=== PATIENT | female | born 1940 | race Two or more races ===

== ENCOUNTER 2024-12-25 20:05 | Inpatient (IN) | payer MEDICAID ==
[~2024-12-25] VITALS: Ht 147.3 cm; Wt 71.0 kg
--- NOTE | 2024-12-25 20:35 | ED.PDOC ---
GI ASSESSMENT HPI Comments 84-year-old female who came to ER into abdominal pain. Patient was having dinner about 3 years ago, and she started experiencing midsternal chest discomfort/epigastric pain, felt like the food was was stuck on her midsternal chest area. She felt nauseated, and unable to swallow. She denies any shortness of breath or drooling. Chief Complaint: Abdominal Pain Time Seen by MD: 20:35 Reviewed Notes: Nurses Notes Allergies: Coded Allergies: NO KNOWN ALLERGIES (Unverified , 12/25/24) Information Source: Patient Mode of Arrival: Ambulatory Timing: Hours Duration: Since onset Quality: Aching Past Medical History PAST MEDICAL HISTORY: HTN Surgical History: Denies all surgeries QC ANALYST History: Denies all QC ANALYST Hx Family History Family History: Reviewed,noncontributory to illness Social History Smoker: Non-Smoker Alcohol: Denies ETOH Use Drugs: Denies Drug Use Lives In: Home Constitutional: denies: chills, diaphoresis, fatigue, fever, malaise, sweats, weakness, others EENTM: denies: blurred vision, double vision, ear bleeding, ear discharge, ear drainage, ear pain, ear ringing, eye pain, eye redness, hearing loss, mouth pain , mouth swelling, nasal discharge, nose bleeding, nose congestion, nose pain, photophobia, tearing, throat pain, voice changes, others Respiratory: denies: cough, hemoptysis, orthopnea, SOB at rest, shortness of breath, SOB with excertion, stridor, wheezing, others Cardiovascular: reports: chest pain; denies: dizzy spells, diaphoresis, Dyspnea on exertion, edema, irregular heart beat, left arm pain, lightheadedness, palpitations, PND, syncope, others Gastrointestinal: reports: abdominal pain; denies: abdomen distended, blood s treaked bowels, constipated, diarrhea, dysphagia, difficulty swallowing, hematemesis, melena, nausea, poor appetite, poor fluid intake, rectal bleeding, rectal pain, vomiting, others Genitourinary: denies: abnormal vagina bleeding, burning, dyspareunia, dysuria, flank pain, frequency, hematuria, incontinence, pain, , vagina discharge, urgency, others Neurological: denies: dizziness, fainting, headache, left sided numbness, left sided weakness, numbness, paresthesia, pre-existing deficit, right sided numbness, right sided weakness, seizure, speech problems, tingling, tremors, weakness, others Musculoskeletal: denies: back pain, gout, joint pain, joint swelling, muscle pain, muscle stiffness, neck pain, others Integumetry: denies: bruises, change in color, change in hair/nails, dryness, laceration, lesions, lumps, rash, wounds, others Allergic/Immunocompromised: denies: Difficulty Healing, Frequent Infections, Hives, Itching, others Hematologic/Lymphatic: denies: anemia, blood clots, easy bleeding, easy bruising, swollen glands, others Endocrine: denies: excessive hunger, excessive sweating, excessive thirst, excessive urination, flushing, intolerance to cold, intolerance to heat, unexplained weight gain, unexplained weight loss, others Psychiatric: denies: anxiety, bipolar disorder, depression, hopeless, panic disorder, schizophrenia, sleepless, suicidal, others Physical Exam General Appearance: No Apparent Distress, Normal HEENT: Normal ENT Inspection, Pharynx Normal, TMs Normal Neck: Full Range of Motion, Non-Tender, Normal, Normal Inspection Respiratory: Chest Non-Tender, Lungs Clear, No Accessory Muscle Use, No Respiratory Distress, Normal Breath Sounds Cardiovascular: No Edema, No JVD, No Murmur, No Gallop, Normal Peripheral Pulses, Regular Rate/Rhythm Breast Exam: Deferred Gastrointestinal: No Organomegaly, Non Tender, No Pulsatile Mass, Normal Bowel Sounds, Soft Genitalia: Deferred Pelvic: Deferred Rectal: Deferred Extremities: No calf tenderness, Normal capillary refill, Normal inspection, Normal range of motion, Non-tender, No pedal edema Musculoskeletal : Apperance: Normal Neurologic: Alert, bridal sales consultant II-XII nml as Tested, No Motor Deficits, Normal Affect, Normal Mood, No Sensory Deficits Cerebellar Function: Normal Reflexes: Normal Skin: Dry, Normal Color, Warm Lymphatic: No Adenopathy Was a procedure done? Was a procedure done?: No GI differential Dx Differential Diagnosis: Bowel Obstruction, Cholecystitis, Constipation, Diverticular disease, Esophagitis, Gastritis/PUD, Gastroenteritis X-Ray, Labs, Meds, VS Vital Signs Date Time Temp Pulse Resp B/P (MAP) Pulse Ox O2 Delivery O2 Flow Rate FiO2 12/26/24 00:47 97.7 72 16 145/76 (99) 97 97.7 12/25/24 21:07 97 Room Air* 0 21 12/25/24 20:46 98.4 65 18 168/61 (96) 97 98.4 12/25/24 20:05 98.3 75 18 146/89 95 98.3 Lab Test 12/25/24 23:09 12/25/24 20:45 12/25/24 20:38 Range/Units Urine Color Light-yellow Yellow Urine Clarity Turbid H Clear Urine pH 6.5 5.0-9.0 Urine Specific [place] 1.009 1.001-1.035 Urine Protein Negative Negative Urine Ketones Negative Negative Urine Blood Negative Negative /uL Urine Nitrite Negative Negative Urine Bilirubin Negative Negative Urine Urobilinogen Normal Negative mg/dL Urine Leukocyte Esterase 3+ Negative /uL Urine RBC 2 0 - 4 /hpf Urine Microscopic WBC 34 H 0-5 /HPF Urine Squamous Epithelial Cells Few <5 /hpf Urine Amorphous Crystals Few None Seen /hpf Urine Bacteria Few H None Seen /hpf Urine Hyaline Casts Few 0 - 2 /lpf Urine Mucus Few None Seen Urine Glucose Normal Normal mg/dL POC Glucose 116 H 70-106 mg/dl White Blood Count 5.3 4.4-10.8 10^3/uL Red Blood Count 4.22 4.0-5.20 10^6/uL Hemoglobin 12.8 12.2-16.2 g/dL Hematocrit 38.3 36.0-46.0 % Mean Corpuscular Volume 90.8 80.0-100.0 fL Mean Corpuscular Hemoglobin 30.4 28.0-32.0 pg Mean Corpuscular Hemoglobin Concent 33.5 32.0-36.0 g/dL Red Cell Distribution Width 14.5 H 11.8-14.3 % Platelet Count 146 140-450 10^3/uL Mean Platelet Volume 10.1 6.9-10.8 fL Neutrophils (%) (Auto) 56.6 37.0-80.0 % Lymphocytes (%) (Auto) 28.9 10.0-50.0 % Monocytes (%) (Auto) 9.5 0.0-12.0 % Eosinophils (%) (Auto) 4.3 0.0-7.0 % Basophils (%) (Auto) 0.7 0.0-2.0 % Neutrophils # (Auto) 3.0 1.6-8.6 10 ^3/uL Lymphocytes # (Auto) 1.5 0.4-5.4 10 ^3/uL Monocytes # (Auto) 0.5 0-1.3 10 ^3/uL Eosinophils # (Auto) 0.2 0-0.8 10 ^3/uL Basophils # (Auto) 0 0-0.2 10 ^3/uL Nucleated Red Blood Cells 0.1 % Sodium Level 136 136-145 mmol/L Potassium Level 4.6 3.5-5.1 mmol/L Chloride Level 102 98-107 mmol/L Carbon Dioxide Level 27 20-31 mmol/L Anion Gap 7 5-15 Blood Urea Nitrogen 12 9-23 mg/dL Creatinine 0.93 0.550-1.02 mg/dL Glomerular Filtration Rate Calc 61 >90 mL/min BUN/Creatinine Ratio 12.9 10.0-20.0 Serum Glucose 110 H 74-106 mg/dL Calcium Level 9.7 8.7-10.4 mg/dL Total Bilirubin 0.5 0.2-1.0 mg/dL Aspartate Amino Transferase (AST) 21 13-40 U/L Alanine Aminotransferase (ALT) 15 7-40 U/L Alkaline Phosphatase 81 46-116 U/L Total Protein 7.3 5.7-8.2 g/dL Albumin 4.4 3.2-4.8 g/dL Lipase 34 12-53 U/L Current Medications Medications (Trade) Dose Ordered Sig/Edwar Route Start Time Stop Time Status Last Admin Sodium Chloride 1,000 ml @ 1,000 mls/hr Q1H ONCE IVB 12/25/24 20:15 12/25/24 21:14 DC 12/25/24 20:53 Time of 1ST Reevaluation: 20:31 Reevaluation 1ST: Unchanged Patient Education/Counseling: Diagnosis, Treatment Family Education/Counseling: Diagnosis, Treatment SEPSIS Sepsis Screen Date sepsis recognized/suspect: Dec 25, 2024 Time Sepsis recognized/suspect: 2004 Recent Procedure: No On Antibiotic Therapy: No Respiratory Rate >20: No Heart Rate >90: No Temp<36 C (96.8 F) or >38.3 C: No SBP <90 or MAP <65 mmHG: No New Acute Mental Status Change: No Is the patient on CPAP, BIPAP,: No Physician Orders Ct Chest/Ab/Pl W Con- Iv Only (12/25/24 20:11) Encourage Adequate Fluid Intak (12/25/24 20:28) Vital Signs Date Time Temp Pulse Resp B/P (MAP) Pulse Ox O2 Delivery O2 Flow Rate FiO2 12/26/24 00:47 97.7 72 16 145/76 (99) 97 97.7 12/25/24 21:07 97 Room Air* 0 21 12/25/24 20:46 98.4 65 18 168/61 (96) 97 98.4 12/25/24 20:05 98.3 75 18 146/89 95 98.3 Laboratory Tests Test 12/25/24 20:38 White Blood Count 5.3 10^3/uL (4.4-10.8) Medications Medications Dose Ordered Sig/Edwar Route Start Time Stop Time Status Last Admin Dose Admin Sodium Chloride 1,000 ml @ 1,000 mls/hr Q1H ONCE IVB 12/25/24 20:15 12/25/24 21:14 DC 12/25/24 20:53 Departure 1 Departure Time of Disposition: 01:19 Impression: Primary Impression: Esophageal obstruction due to food impaction Disposition: ADMITTED INPATIENT Admit to: Med Surg Condition: Guarded Discharged With: Self Comments 84-year-old female with chest pain and unable to swallow liquids after eating. CT scan shows no signs of a obstruction. I suspect food impaction. On re- evaluation after glucagon patient is still is unable to swallow and still has the discomfort. Patient will need admission for supportive care and further workup and GI consultation. Critical Care Note Critical Care Time?: Yes (35 min-critical care time only) Critical care comment: Total critical care time: Approximately 36 minutes Due to a high probability of clinically significant, life threatening deterioration, the patient required my highest level of preparedness to intervene emergently and I personally spent this critical care time directly and personally managing the patient. This critical care time included obtaining a history; examining the patient; pulse oximetry; ordering and review of studies; arranging urgent treatment with development of a management plan; evaluation of patient's response to treatment; frequent reassessment; and, discussions with other providers. This critical care time was performed to assess and manage the high probability of imminent, life-threatening deterioration that could result in multi-organ failure. It was exclusive of separately billable procedures and treating other patients. Stability Stability form required: No Heart Score Heart Score: Heart Score Response (Comments) Value History N/A 0 EKG N/A 0 Age N/A 0 Risk Factors N/A 0 Troponin N/A 0 Total 0 I personally scribed for BRINDA CASTRO MD ([email or web address]) on 12/25/24 at 20:35. Electronically submitted by Polo Ledezma ([email or web address]). BRINDA CASTRO MD Dec 25, 2024 20:35
[2024-12-25] MEDS: GLUCAGON EMERG KIT 1mg/1ml IV ONE (20:46)
[2024-12-25] MEDS: SODIUM CHLORIDE 0.9% 1,000 ML IVB ONE (20:53)
[2024-12-25 21:26] LABS: Alanine Aminotransferase 15 U/L (7-40); Albumin 4.4 g/dL (3.2-4.8); Alkaline Phosphatase 81 U/L (46-116); Anion Gap 7 (5-15); BUN/Creatinine Ratio 12.9 (10.0-20.0); Bilirubin, Total 0.5 mg/dL (0.2-1.0); Blood Urea Nitrogen 12 mg/dL (9-23); Calcium 9.7 mg/dL (8.7-10.4); Carbon Dioxide 27 mmol/L (20-31); Chloride 102 mmol/L (98-107); Lipase 34 U/L (12-53); Potassium 4.6 mmol/L (3.5-5.1); Sodium 136 mmol/L (136-145); Total Protein 7.3 g/dL (5.7-8.2)
[2024-12-25 21:47] LABS: Glucose 110 mg/dL (74-106)
[2024-12-25 21:52] LABS: Hematocrit 38.3 % (36.0-46.0); Hemoglobin 12.8 g/dL (12.2-16.2); Mean Corpuscular Hemoglobin 30.4 pg (28.0-32.0); Mean Corpuscular Volume 90.8 fL (80.0-100.0); Nucleated Red Blood Cells % 0.1 %
[2024-12-25 23:34] LABS: Urine Amorphous Crystal FEW /hpf (None Seen); Urine Protein, UAD Negative (Negative)
[2024-12-26] VITALS (7 sets, daily range): BP systolic 138–165; BP diastolic 63–86; PULSE 58–67; RESP 16–20; TEMP 96.8–98.3; O2SAT 94–98
[2024-12-26] MEDS: IOHEXOL 300 MG/ML 100ML BOTTLE IJ ONE (00:37)
--- NOTE | 2024-12-26 01:10 | DVH ---
Exam: CT CT CHEST/AB/PL W CON- IV ONLY History: abd pain dysphagia Comparison Study: None Technique: Multidetector spiral CT of the abdomen was performed from lung bases to pubic symphysis. I maging was performed without IV contrast. Axial, coronal and sagittal multiplanar reformats were obta ined from the axial data set by the technologist. Radiation Dose : 1. Abdomen/Pelvis: CTDIvol 10.54 mGy, DLP 717.16 mGy*cm. Findings: Evaluation of solid organs is limited due to lack of intravenous contrast use. Lung Bases: No acute or significant lung base finding. Normal heart size. No pleural or pericardial effusion. Liver: The liver is normal in size. No focal lesions. Gallbladder and Biliary Tree: Gallbladder is surgically absent. Spleen: Unremarkable Pancreas: The pancreas is grossly normal in appearance. Adrenal Glands: Unremarkable Kidneys: Kidneys are grossly normal without calculi or hydronephrosis. Bladder: Grossly unremarkable for degree of distention. Bowel: The stomach is grossly normal in appearance. Small bowel and colon are normal in caliber and d istribution. The appendix is not visualized; however, no secondary findings of acute appendicitis terrence ntified. Ascites: Absent Lymphadenopathy: No mesenteric, retroperitoneal or periportal lymphadenopathy. Abdominal Wall and Mesentery: Unremarkable. Vasculature: The visualized abdominal aorta is normal in size and caliber. Evaluation of abdominal a nd pelvic vessels is limited due to lack of intravenous contrast. Pelvic Organs: Unremarkable Musculoskeletal: No aggressive focal bony lesions, acute fractures or dislocation. IMPRESSION: No acute abdominal or pelvic findings. Radiation optimization: All CT scans at this facility use at least one of these dose optimization [place] hniques: automated exposure control mA and/or kV adjustment per patient size (includes targeted exam s where dose is matched to clinical indication) or iterative reconstruction.
[2024-12-26] MEDS ORDERED: ONDANSETRON HCL 4 MG/2 ML VIAL IV PRN (02:15)
[2024-12-26] MEDS ORDERED: DOCUSATE SOD 100 MG CAP PO PRN (02:15)
[2024-12-26] MEDS ORDERED: hydrALAZINE HCL 20 MG/ML VL IV PRN (02:15)
[2024-12-26] MEDS ORDERED: HYDROcodone-ACET 5/325MG TAB PO PRN (02:15)
--- NOTE | 2024-12-26 02:54 | DVHHP2 ---
History of Present Illness Reason for Visit: Abdominal pain History of Present Illness The patient is a 84-year-old female with past medical history of hypertension who presented to [facility] ED with complaint of abdominal pain. Patient reports that she was having dinner when she started experiencing mi dsternal chest discomfort/epigastric pain, felt like the food was was stuck on her midsternal chest area. She felt nauseated and unable to swallow. Patient was seen and evaluated in the ED, laboratory data shows WBC 5.5, platelets 146, sodium 136, potassium 4.6, BUN 12, creatinine 0.93, glucose 110, calcium 9.7, lipase 34, blood pressure 145/76, heart rate 72, temperature 97.7 F, O2 saturation 97% on room. Chest/abdomen/pelvis CT showed no acute abdominal or pelvic findings. Urinalysis positive for urinary tract infection. Please see medication orders section in the computer. On my assessment, patient denied chest pain, no headache, dizziness, diaphoresis, shortness of breaths, no diarrhea, nausea, vomiting, fever, chills. Patient was admitted for further e valuation and medical management. Past Medical History HTN Past Surgical History Denies all surgeries Family History Reviewed, noncontributory to the management of this case. Past Social History The patient lives at home, denies smoking, alcohol or illicit drugs abuse. Review of Systems Constitutional: Yes: Weakness; No: Fever, Chills, Sweats, Malaise, Other Eyes: No: Pain, Vision change, Conjunctivae inflammation, Eyelid inflammation, Other, Redness ENT: No: Ear pain, Ear discharge, Nose pain, Nose discharge, Nose congestion, Mouth pain, Mouth swelling, Throat pain, Throat swelling, Other Respiratory: No: Cough, Dry, Shortness of breath, SOB with excertion, Wheezing, Hemoptysis, Pleuritic Pain, Sputum, Wheezing, Other Cardiovascular: Other (Chest pressure); No: Chest Pain, Palpitations, Orthopnea, Paroxysmal Noc. Dyspnea, Edema, Lt Headedness Gastrointestinal: Nausea, Abdominal Pain; No: Vomiting, Diarrhea, Constipation, Melena, Hematochezia, Other Genitourinary: No Dysuria, No Frequency, No Incontinence, No Hematuria, No Retention, No Other Musculoskeletal: No: other, neck pain, shoulder pain, arm pain, back pain, hand pain, leg pain, foot pain Skin: No: Rash, Lesions, Jaundice, Bruising, Other Neurological: No: Weakness, Numbness, Incoordination, Change in speech, Confus ion, Seizures, Other Allergies: Coded Allergies: NO KNOWN ALLERGIES (Unverified , 12/25/24) Medications Current Medications Medications Dose Ordered Sig/Edwar Route Start Time Stop Time Status Last Admin Dose Admin Ceftriaxone Sodium 50 ml @ 100 mls/hr DAILY@09 IV 12/27/24 09:00 Hydralazine HCl 10 mg Q6HP PRN IV 12/26/24 02:15 Sodium Chloride 1,000 ml @ 60 mls/hr [id number] IV 12/26/24 02:15 Acetaminophen/ Hydrocodone Bitart 1 tab Q4HP PRN PO 12/26/24 02:15 Ondansetron HCl 4 mg Q4HP PRN IV 12/26/24 02:15 Docusate Sodium 100 mg BIDPRN PRN PO 12/26/24 02:15 Acetaminophen 650 mg Q6HP PRN PO 12/26/24 02:15 Exam Vital Signs Vital Signs Date Time Temp Pulse Resp B/P (MAP) Pulse Ox O2 Delivery O2 Flow Rate FiO2 12/26/24 00:47 97.7 72 16 145/76 (99) 97 97.7 12/25/24 21:07 Room Air* 0 21 General Appearance: Alert, Oriented X3, Cooperative, No acute distress HEENT: Atraumatic, PERRLA, EOMI, Mucous membr. moist/pink Respiratory: Normal air movement Cardiovascular: Regular rate, Normal S1, Normal S2, No murmurs Abdominal: Normal bowel sounds, Soft, No tenderness, No hepatospenomegaly, No masses Extremities: No clubbing, No cyanosis, No edema, Normal pulses, No tenderness/swelling Skin: No rashes, No breakdown, No significant lesion Neuro: Normal speech, Normal tone, Sensation intact, Cranial nerves 3-12 NL, Reflexes 2+, Other (Generalized weakness) Psych/Mental Status: Mental status NL, Mood NL Labs/Xrays Labs Test 12/25/24 23:09 12/25/24 20:45 12/25/24 20:38 Range/Units Urine Color Light-yellow Yellow Urine Clarity Turbid H Clear Urine pH 6.5 5.0-9.0 Urine Specific [place] 1.009 1.001-1.035 Urine Protein Negative Negative Urine Ketones Negative Negative Urine Blood Negative Negative /uL Urine Nitrite Negative Negative Urine Bilirubin Negative Negative Urine Urobilinogen Normal Negative mg/dL Urine Leukocyte Esterase 3+ Negative /uL Urine RBC 2 0 - 4 /hpf Urine Microscopic WBC 34 H 0-5 /HPF Urine Squamous Epithelial Cells Few <5 /hpf Urine Amorphous Crystals Few None Seen /hpf Urine Bacteria Few H None Seen /hpf Urine Hyaline Casts Few 0 - 2 /lpf Urine Mucus Few None Seen Urine Glucose Normal Normal mg/dL POC Glucose 116 H 70-106 mg/dl White Blood Count 5.3 4.4-10.8 10^3/uL Red Blood Count 4.22 4.0-5.20 10^6/uL Hemoglobin 12.8 12.2-16.2 g/dL Hematocrit 38.3 36.0-46.0 % Mean Corpuscular Volume 90.8 80.0-100.0 fL Mean Corpuscular Hemoglobin 30.4 28.0-32.0 pg Mean Corpuscular Hemoglobin Concent 33.5 32.0-36.0 g/dL Red Cell Distribution Width 14.5 H 11.8-14.3 % Platelet Count 146 140-450 10^3/uL Mean Platelet Volume 10.1 6.9-10.8 fL Neutrophils (%) (Auto) 56.6 37.0-80.0 % Lymphocytes (%) (Auto) 28.9 10.0-50.0 % Monocytes (%) (Auto) 9.5 0.0-12.0 % Eosinophils (%) (Auto) 4.3 0.0-7.0 % Basophils (%) (Auto) 0.7 0.0-2.0 % Neutrophils # (Auto) 3.0 1.6-8.6 10 ^3/uL Lymphocytes # (Auto) 1.5 0.4-5.4 10 ^3/uL Monocytes # (Auto) 0.5 0-1.3 10 ^3/uL Eosinophils # (Auto) 0.2 0-0.8 10 ^3/uL Basophils # (Auto) 0 0-0.2 10 ^3/uL Nucleated Red Blood Cells 0.1 % Sodium Level 136 136-145 mmol/L Potassium Level 4.6 3.5-5.1 mmol/L Chloride Level 102 98-107 mmol/L Carbon Dioxide Level 27 20-31 mmol/L Anion Gap 7 5-15 Blood Urea Nitrogen 12 9-23 mg/dL Creatinine 0.93 0.550-1.02 mg/dL Glomerular Filtration Rate Calc 61 >90 mL/min BUN/Creatinine Ratio 12.9 10.0-20.0 Serum Glucose 110 H 74-106 mg/dL Calcium Level 9.7 8.7-10.4 mg/dL Total Bilirubin 0.5 0.2-1.0 mg/dL Aspartate Amino Transferase (AST) 21 13-40 U/L Alanine Aminotransferase (ALT) 15 7-40 U/L Alkaline Phosphatase 81 46-116 U/L Total Protein 7.3 5.7-8.2 g/dL Albumin 4.4 3.2-4.8 g/dL Lipase 34 12-53 U/L PATIENT: STUART BARAJASACCT: [id number] UNIT: [id number] : 1940 LOC: ER ROOM / BED: / AGE / SEX: 84 / F ADM STATUS: REG ER SERVICE 10 ORDERING PHYSICIAN: BRINDA CASTRO MD PROCEDURE(s): CAPIV - CT CHEST/AB/PL W CON- IV ONLY REASON: abd pain dysphagia ORDER NUMBER(s): [id number], ACCESSION NUMBER(s): [id number] Exam: CT CT CHEST/AB/PL W CON- IV ONLY History: abd pain dysphagia Comparison Study: None Technique: Multidetector spiral CT of the abdomen was performed from lung bases to pubic symphysis. Imaging was performed without IV contrast. Axial, coronal and sagittal multiplanar reformats were obtained from the axial data set by the technologist. Radiation Dose: 1. Abdomen/Pelvis: CTDIvol 10.54 mGy, DLP 717.16 mGy*cm. Findings: Evaluation of solid organs is limited due to lack of intravenous contrast use. Lung Bases: No acute or significant lung base finding. Normal heart size. No pleural or pericardial effusion. Liver: The liver is normal in size. No focal lesions. Gallbladder and Biliary Tree: Gallbladder is surgically absent. Spleen: Unremarkable Pancreas: The pancreas is grossly normal in appearance. Adrenal Glands: Unremarkable Kidneys: Kidneys are grossly normal without calculi or hydronephrosis. Bladder: Grossly unremarkable for degree of distention. Bowel: The stomach is grossly normal in appearance. Small bowel and colon are normal in caliber and distribution. The appendix is not visualized; however, no secondary findings of acute appendicitis identified. Ascites: Absent Lymphadenopathy: No mesenteric, retroperitoneal or periportal lymphadenopathy. Abdominal Wall and Mesentery: Unremarkable. Vasculature: The visualized abdominal aorta is normal in size and caliber. Evaluation of abdominal and pelvic vessels is limited due to lack of intravenous contrast. Pelvic Organs: Unremarkable Musculoskeletal: No aggressive focal bony lesions, acute fractures or dislocation. IMPRESSION: No acute abdominal or pelvic findings. SEPSIS Sepsis Screen Date sepsis recognized/suspect: Dec 25, 2024 Time Sepsis recognized/suspect: 2004 Recent Procedure: No On Antibiotic Therapy: No Respiratory Rate >20: No Heart Rate >90: No Temp<36 C (96.8 F) or >38.3 C: No SBP <90 or MAP <65 mmHG: No New Acute Mental Status Change: No Is the patient on CPAP, BIPAP,: No Physician Orders Ct Chest/Ab/Pl W Con- Iv Only (12/25/24 20:11) Encourage Adequate Fluid Intak (12/25/24 20:28) Complete Blood Count (12/26/24 04:00) Comprehensive Metabolic Panel (12/26/24 04:00) Urine Bacterial Culture (12/26/24 02:07) Hydralazine Injection (Apresoline Inject (12/26/24 02:15) Allergies (12/26/24 02:07) Code Status (12/26/24 02:07) Sodium Chloride 0.9% (12/26/24 02:15) Oxygen Per Hour (12/26/24 02:07) Hydrocodone-Acet 5/325mg Tab ([place] 5/32 (12/26/24 02:15) Ondansetron Hcl (Zofran) (12/26/24 02:15) Docusate Sodium Capsule (Colace Capsule) (12/26/24 02:15) Complete Blood Count (12/27/24 04:00) Comprehensive Metabolic Panel (12/27/24 04:00) Condition: Serious (12/26/24 02:07) Acetaminophen Tablet (Tylenol Tablet) (12/26/24 02:15) Clear Liq Diet (12/26/24 Breakfast) Bedrest With Bathroom Privileg (12/26/24 02:07) Sequential Compression Device (12/26/24 ) Ceftriaxone 1gm/50ml (Rocephin) (12/27/24 09:00) Vital Signs Date Time Temp Pulse Resp B/P (MAP) Pulse Ox O2 Delivery O2 Flow Rate FiO2 12/26/24 00:47 97.7 72 16 145/76 (99) 97 97.7 12/25/24 21:07 97 Room Air* 0 21 12/25/24 20:46 98.4 65 18 168/61 (96) 97 98.4 12/25/24 20:05 98.3 75 18 146/89 95 98.3 Laboratory Tests Test 12/25/24 20:38 White Blood Count 5.3 10^3/uL (4.4-10.8) Medications Medications Dose Ordered Sig/Edwar Route Start Time Stop Time Status Last Admin Dose Admin Sodium Chloride 1,000 ml @ 1,000 mls/hr Q1H ONCE IVB 12/25/24 20:15 12/25/24 21:14 DC 12/25/24 20:53 1,000 MLS/HR Assessment/Plan Assessment/Plan Abdominal pain Urinary tract infection Esophageal obstruction due to food impaction Plan 1. Admit to telemetry unit 2. Breathing treatment 3. Pain control management 4. IV antibiotic management 5. Management of fluids and electrolytes 6. Consultation for hospitalist/GI 7. Diagnostic test abdomen/pelvis CT 8. DVT prophylaxis-on SCDs 9. Repeat labs CBC, CMP in a.m. 10. Home medication reviewed and reconciled 11. Continue with current medical management 12. Treatment plan discussed with patient and RN. Patient verbalized understanding. Plan discussed with: Patient, Other (RN) My Orders Orders - DASHAWN BENÍTEZ DNP Procedure Category Date Status Time Complete Blood Count LAB 12/26/24 Logged 04:00 Comprehensive LAB 12/26/24 Logged Metabolic Panel 04:00 Urine Bacterial ANDRÉS 12/26/24 Logged Culture 02:07 Hydralazine Injection PHA 12/26/24 In Process (Apresoline Inject 02:15 Allergies CHARMAINE 12/26/24 In Process 02:07 Code Status CODE 12/26/24 Transmitted 02:07 Sodium Chloride 0.9% PHA 12/26/24 In Process 02:15 Oxygen Per Hour RT 12/26/24 Transmitted 02:07 Hydrocodone-Acet PHA 12/26/24 In Process 5/325mg Tab ([place] 02:15 Ondansetron Hcl PHA 12/26/24 In Process (Zofran) 02:15 Docusate Sodium PHA 12/26/24 In Process Capsule (Colace 02:15 Complete Blood Count LAB 12/27/24 Verified 04:00 Comprehensive LAB 12/27/24 Verified Metabolic Panel 04:00 Condition: Serious CHARMAINE 12/26/24 In Process 02:07 Acetaminophen Tablet PHA 12/26/24 In Process (Tylenol Tablet) 02:15 Clear Liq Diet DIET 12/26/24 Transmitted Breakfast Bedrest With Bathroom CHARMAINE 12/26/24 In Process Privileg 02:07 Sequential CHARMAINE 12/26/24 In Process Compression Device Ceftriaxone 1gm/50ml PHA 12/27/24 In Process (Rocephin) 09:00 Problem List: (1) Abdominal pain (2) Urinary (tract) obstruction (3) Esophageal obstruction due to food impaction Date of Service: Dec 26, 2024 Billing Provider: DASHAWN BENÍTEZ DNP Common Visit Codes: [id number] INP/OBS CARE (HIGH) DASHAWN BENÍTEZ DNP Dec 26, 2024 02:54
[2024-12-26] MEDS ORDERED: MORPHINE SULFATE INJ 2 MG/ml SYRG IV PRN (03:00)
[2024-12-26] MEDS ORDERED: NITROGLYCERIN 0.4 MG SL TAB SL PRN (03:00)
[2024-12-26] MEDS: SODIUM CHLORIDE 0.9% 1,000 ML IV SCH (03:50)
[2024-12-26 06:03] LABS: Hematocrit 36.9 % (36.0-46.0); Hemoglobin 12.4 g/dL (12.2-16.2); Mean Corpuscular Hemoglobin 30.5 pg (28.0-32.0); Mean Corpuscular Volume 90.7 fL (80.0-100.0); Nucleated Red Blood Cells % 0.1 %
[2024-12-26 06:20] LABS: Alanine Aminotransferase 12 U/L (7-40); Albumin 4.1 g/dL (3.2-4.8); Alkaline Phosphatase 72 U/L (46-116); Anion Gap 9 (5-15); BUN/Creatinine Ratio 12.0 (10.0-20.0); Blood Urea Nitrogen 9 mg/dL (9-23); Calcium 9.0 mg/dL (8.7-10.4); Carbon Dioxide 26 mmol/L (20-31); Chloride 104 mmol/L (98-107); Glucose 106 mg/dL (74-106); Potassium 3.8 mmol/L (3.5-5.1); Sodium 139 mmol/L (136-145); Total Protein 6.8 g/dL (5.7-8.2)
[2024-12-26 06:21] LABS: Bilirubin, Total 0.4 mg/dL (0.2-1.0)
[2024-12-26] MEDS ORDERED: ERGO2000 PO (18:15)
[2024-12-26] MEDS ORDERED: OMEP20TA PO (18:16)
[2024-12-26] MEDS ORDERED: ATOR10TA52 PO (18:18)
[2024-12-26] MEDS ORDERED: LISI-275 PO (18:19)
[2024-12-26] MEDS ORDERED: CALC-312 PO (18:20)
[2024-12-26] MEDS ORDERED: ERGO500086 PO (18:21)
--- NOTE | 2024-12-26 18:39 | DVHINCON2 ---
Date of service: Dec 26, [address] Castro Reason for Consultation Dysphagia feeling of food getting stuck in the midsternal area and throat area nausea unable to swallow History of Present Illness This 84-year-old female presented with a history of abdominal pain as well as chest discomfort after having dinner she felt that something was stuck in the midsternal area and was nauseated unable to swallow and came to the emergency room CT scan of the chest abdomen and pelvis done without oral contrast showed no gross abnormalities Patient is still complaints of some discomfort in the oropharyngeal area and chest but was unable to swallow clear liquids No history of any unusual food ingestion, no history of any GERD or esophageal stricture in the past Never had any EGD evaluation Past Medical History Hypertension Past Surgical History None Family History: Patient reports no known family medical history. Family History Noncontributory Social History Denies smoking or drinking Allergies: Coded Allergies: NO KNOWN ALLERGIES (Unverified , 12/25/24) Home Meds Reported Medications Ergocalciferol (Vitamin D (Ergocalciferol) 50,000 Unit Cap, [address] UNIT PO EVERY 7 DAYS, CAP 12/26/24 Lisinopril (Lisinopril) 5 Mg Tab, 5 MG PO DAILY, TAB 12/26/24 Atorvastatin Calcium (ATORVASTATIN CALCIUM) 10 Mg Tab, 1 TAB PO DAILY, #30 TAB 5 Refills 12/26/24 Omeprazole (Gnp Omeprazole) 20 Mg Tab, 1 TAB PO DAILY, #90 TAB 1 Refill 12/26/24 Current Medications Current Medications Medications (Trade) Dose Ordered Sig/Edwar Route PRN Reason Start Time Stop Time Status Last Admin Ceftriaxone Sodium 50 ml @ 100 mls/hr DAILY@09 IV 12/27/24 09:00 Hydralazine HCl (Apresoline Injection) 10 mg Q6HP PRN IV SBP>150 12/26/24 02:15 Sodium Chloride 1,000 ml @ 60 mls/hr [id number] IV 12/26/24 02:15 12/26/24 03:50 Acetaminophen/ Hydrocodone Bitart ([place] 5/325MG Tab) 1 tab Q4HP PRN PO MODERATE PAIN (4-6 PAIN SCALE) 12/26/24 02:15 Ondansetron HCl (Zofran) 4 mg Q4HP PRN IV NAUSEA / VOMITING 12/26/24 02:15 Docusate Sodium (Colace Capsule) 100 mg BIDPRN PRN PO FOR CONSTIPATION 12/26/24 02:15 Acetaminophen (Tylenol Tablet) 650 mg Q6HP PRN PO PAIN SCALE 1-3 OR TEMP>100.4 12/26/24 02:15 Nitroglycerin (Ntrostat Sublingual) 0.4 mg Q5MINP PRN SL FOR CHEST PAIN 12/26/24 03:00 Morphine Sulfate 2 mg Q30M PRN IV FOR CHEST PAIN 12/26/24 03:00 Review of Systems Noncontributory Vital Signs Vital Signs Date Time Temp Pulse Resp B/P (MAP) Pulse Ox O2 Delivery O2 Flow Rate FiO2 12/26/24 18:27 97.9 58 16 149/63 (91) 98 97.9 12/26/24 18:18 Room Air* 0 21 Physical Exam Moderately built and nourished female in no acute distress but uncomfortable from the mild discomfort in the oropharynx area and slightly in the chest HEENT examination no pallor Lungs are clear Cardiovascular unremarkable Abdomen is soft nontender no masses Extremities no edema Labs/Diagnostic Data Labs Test 12/26/24 05:07 12/25/24 23:09 12/25/24 20:45 12/25/24 20:38 Range/Units White Blood Count 4.2 L 4.4-10.8 10^3/uL Red Blood Count 4.07 4.0-5.20 10^6/uL Hemoglobin 12.4 12.2-16.2 g/dL Hematocrit 36.9 36.0-46.0 % Mean Corpuscular Volume 90.7 80.0-100.0 fL Mean Corpuscular Hemoglobin 30.5 28.0-32.0 pg Mean Corpuscular Hemoglobin Concent 33.6 32.0-36.0 g/dL Red Cell Distribution Width 14.8 H 11.8-14.3 % Platelet Count 126 L 140-450 10^3/uL Mean Platelet Volume 9.5 6.9-10.8 fL Neutrophils (%) (Auto) 52.2 37.0-80.0 % Lymphocytes (%) (Auto) 31.4 10.0-50.0 % Monocytes (%) (Auto) 9.8 0.0-12.0 % Eosinophils (%) (Auto) 5.9 0.0-7.0 % Basophils (%) (Auto) 0.7 0.0-2.0 % Neutrophils # (Auto) 2.2 1.6-8.6 10 ^3/uL Lymphocytes # (Auto) 1.3 0.4-5.4 10 ^3/uL Monocytes # (Auto) 0.4 0-1.3 10 ^3/uL Eosinophils # (Auto) 0.2 0-0.8 10 ^3/uL Basophils # (Auto) 0 0-0.2 10 ^3/uL Nucleated Red Blood Cells 0.1 % Sodium Level 139 136-145 mmol/L Potassium Level 3.8 3.5-5.1 mmol/L Chloride Level 104 98-107 mmol/L Carbon Dioxide Level 26 20-31 mmol/L Anion Gap 9 5-15 Blood Urea Nitrogen 9 9-23 mg/dL Creatinine 0.75 0.550-1.02 mg/dL Glomerular Filtration Rate Calc 79 >90 mL/min BUN/Creatinine Ratio 12.0 10.0-20.0 Serum Glucose 106 74-106 mg/dL Calcium Level 9.0 8.7-10.4 mg/dL Total Bilirubin 0.4 0.2-1.0 mg/dL Aspartate Amino Transferase (AST) 21 13-40 U/L Alanine Aminotransferase (ALT) 12 7-40 U/L Alkaline Phosphatase 72 46-116 U/L Total Protein 6.8 5.7-8.2 g/dL Albumin 4.1 3.2-4.8 g/dL Urine Color Light-yellow Yellow Urine Clarity Turbid H Clear Urine pH 6.5 5.0-9.0 Urine Specific [place] 1.009 1.001-1.035 Urine Protein Negative Negative Urine Ketones Negative Negative Urine Blood Negative Negative /uL Urine Nitrite Negative Negative Urine Bilirubin Negative Negative Urine Urobilinogen Normal Negative mg/dL Urine Leukocyte Esterase 3+ Negative /uL Urine RBC 2 0 - 4 /hpf Urine Microscopic WBC 34 H 0-5 /HPF Urine Squamous Epithelial Cells Few <5 /hpf Urine Amorphous Crystals Few None Seen /hpf Urine Bacteria Few H None Seen /hpf Urine Hyaline Casts Few 0 - 2 /lpf Urine Mucus Few None Seen Urine Glucose Normal Normal mg/dL POC Glucose 116 H 70-106 mg/dl Lipase 34 12-53 U/L Assessment 84-year-old female with a history of throat pain as well as chest discomfort after eating dinner feels like food is stuck in the midsternal area. CT scan failed to reveal any masses tolerated some clear liquids well patient is still feeling some discomfort in the epigastrium as well as chest Clinical impression is Possible esophagitis from some food impaction which is probably dislodged now CT scan done without oral contrast is normal Plan/Recommendation We will recommend a barium swallow with oral contrast barium and see the esophagus and depending upon the specific symptoms persist we will recommend EGD evaluation Patient also otherwise needs an EGD evaluation as an outpatient sometimes otherwise Thank you Dr. Ingram Plan discussed with: Patient ELOINA INGRAM MD Dec 26, 2024 18:39
[2024-12-27] VITALS (8 sets, daily range): BP systolic 129–144; BP diastolic 70–83; PULSE 63–70; RESP 16–18; TEMP 97.9–98.6; O2SAT 96–97
[2024-12-27 06:35] LABS: Hematocrit 36.5 % (36.0-46.0); Hemoglobin 12.4 g/dL (12.2-16.2); Mean Corpuscular Hemoglobin 30.6 pg (28.0-32.0); Mean Corpuscular Volume 90.0 fL (80.0-100.0); Nucleated Red Blood Cells % 0.0 %
[2024-12-27 06:55] LABS: Alanine Aminotransferase 13 U/L (7-40); Albumin 3.9 g/dL (3.2-4.8); Alkaline Phosphatase 74 U/L (46-116); Anion Gap 10 (5-15); BUN/Creatinine Ratio 9.0 (10.0-20.0); Calcium 8.8 mg/dL (8.7-10.4); Carbon Dioxide 27 mmol/L (20-31); Chloride 103 mmol/L (98-107); Glucose 100 mg/dL (74-106); Potassium 4.2 mmol/L (3.5-5.1); Sodium 140 mmol/L (136-145); Total Protein 6.6 g/dL (5.7-8.2)
[2024-12-27 06:56] LABS: Bilirubin, Total 0.4 mg/dL (0.2-1.0)
[2024-12-27 07:26] LABS: Blood Urea Nitrogen 7 mg/dL (9-23)
--- NOTE | 2024-12-27 14:40 | DVHPN2 ---
Subjective The patient is seen and examined at bedside. Complain of abdominal pain. Complain of having problem of swallowing. The patient tolerated clear liquid diet with some pain still. Reviewed: Care Plan, H&P, Labs, Medications, Previous Orders, Radiology Changes from previous H/P or p: No Changes Eyes: No Pain, No Vision change, No Conjunctivae inflammation, No Eyelid inflammation, No Other, No Redness ENT: No Ear pain, No Ear discharge, No Nose pain, No Nose discharge, No Nose congestion, No Mouth pain, No Mouth swelling, No Throat pain, No Throat swelling, No Other Cardiovascular: No Chest Pain, No Palpitations, No Orthopnea, No Paroxysmal Noc. Dyspnea, No Edema, No Lt Headedness; Other (Chest pressure) Respiratory: No Cough, No Dry, No Shortness of breath, No SOB with excertion, No Wheezing, No Hemoptysis, No Pleuritic Pain, No Sputum, No Other Gastrointestinal: Nausea; No Vomiting; Abdominal Pain; No Diarrhea, No Constipation, No Melena, No Hematochezia, No Other Genitourinary: No Dysuria, No Frequency, No Incontinence, No Hematuria, No Retention, No Other Musculoskeletal: No other, No neck pain, No shoulder pain, No arm pain, No back pain, No hand pain, No leg pain, No foot pain Skin: No Rash, No Lesions, No Jaundice, No Bruising, No Other Objective Vitals Vital Signs Date Time Temp Pulse Resp B/P (MAP) Pulse Ox O2 Delivery O2 Flow Rate FiO2 12/27/24 13:00 98.0 65 17 137/70 (92) 96 98.0 12/26/24 18:18 Room Air* 0 21 Intake/Output Intake and Output 12/27/24 07:00 Intake Total 480 ml Balance 480 ml Intake Oral 480 ml # Voids 2 General Appearance: Alert, Cooperative, mild distress HEENT: Atraumatic, PERRLA, EOMI, Mucous membr. moist/pink Neck: Supple Lungs: Clear to auscultation, Normal air movement Cardiovascular: Regular rate, Normal S1, Normal S2, No murmurs, Gallops, Rubs Abdomen: Normal bowel sounds, Soft, No tenderness Extremities: Normal pulses Neuro: Cranial nerves 3-12 NL Psych/Mental Status: Mental status NL Medications Current Medications Medications Dose Ordered Sig/Edwar Route Start Time Stop Time Status Last Admin Dose Admin Ceftriaxone Sodium 50 ml @ 100 mls/hr DAILY@09 IV 12/27/24 09:00 12/27/24 09:26 100 MLS/HR Hydralazine HCl 10 mg Q6HP PRN IV 12/26/24 02:15 Sodium Chloride 1,000 ml @ 60 mls/hr [id number] IV 12/26/24 02:15 12/27/24 05:53 60 MLS/HR Acetaminophen/ Hydrocodone Bitart 1 tab Q4HP PRN PO 12/26/24 02:15 Ondansetron HCl 4 mg Q4HP PRN IV 12/26/24 02:15 Docusate Sodium 100 mg BIDPRN PRN PO 12/26/24 02:15 Acetaminophen 650 mg Q6HP PRN PO 12/26/24 02:15 Nitroglycerin 0.4 mg Q5MINP PRN SL 12/26/24 03:00 Morphine Sulfate 2 mg Q30M PRN IV 12/26/24 03:00 Laboratory Results Laboratory Tests 12/27/24 06:02 Chemistry Test 12/27/24 06:02 Albumin 3.9 g/dL (3.2-4.8) Calcium Level 8.8 mg/dL (8.7-10.4) Total Protein 6.6 g/dL (5.7-8.2) LFT Test 12/27/24 06:02 Alanine Aminotransferase (ALT) 13 U/L (7-40) Alkaline Phosphatase 74 U/L (46-116) Aspartate Amino Transferase (AST) 20 U/L (13-40) Total Bilirubin 0.4 mg/dL (0.2-1.0) Urinalysis Test 12/25/24 23:09 Urine Color Light-yellow (Yellow) Urine Clarity Turbid (Clear) H Urine pH 6.5 (5.0-9.0) Urine Specific [place] 1.009 (1.001-1.035) Urine Protein Negative (Negative) Urine Ketones Negative (Negative) Urine Blood Negative /uL (Negative) Urine Nitrite Negative (Negative) Urine Bilirubin Negative (Negative) Urine Urobilinogen Normal mg/dL (Negative) Urine Leukocyte Esterase 3+ /uL (Negative) Urine RBC 2 /hpf (0 - 4) Urine Microscopic WBC 34 /HPF (0-5) H Urine Squamous Epithelial Cells Few /hpf (<5) Urine Amorphous Crystals Few /hpf (None Seen) Urine Bacteria Few /hpf (None Seen) H Urine Hyaline Casts Few /lpf (0 - 2) Urine Mucus Few (None Seen) Urine Glucose Normal mg/dL (Normal) Microbiology Microbiology Date/Time Source Procedure Growth Status 12/25/24 23:09 Voided Urine Urine Culture - Preliminary Resulted Labs and/or images reviewed: Labs reviewed by me Assessment/Plan Assessment/Plan Abdominal pain Urinary tract infection Esophageal obstruction due to food impaction Plan Continuing current management. Continuing with IV antibiotic. Appreciate GI specialist input. He recommend a barium swallow with oral contrast barium and see the esophagus and depending upon the specific symptoms persist he will recommend EGD evaluation. Patient also otherwise needs an EGD evaluation as an outpatient sometimes otherwise Waiting for barium study. Discussed with patient regarding to plan of care. This medical document was created using an electronic medical record system with [facility] direct computerized dictation system. Although this document has been carefully reviewed, there may still be some phonetic and typographical errors. These areas are purely typographical due to imperfections of the software programs, and do not reflect any compromise in the patient's medical care. Plan discussed with: Patient Date of Service: Dec 27, 2024 Billing Provider: MARYLU WEISS MD Common Visit Codes: [id number] INP/OBS CARE(HIGH) MARYLU WEISS MD Dec 27, 2024 14:40
--- NOTE | 2024-12-27 15:49 | DVHPN2 ---
Progress Note - Dictate Date Seen: Dec 27, 2024 Has the PT tested + for MRSA If YES, has PT been informed?: Yes Medical Necessity Reason Pt with a Central, PICC or Fol: No Subjective Patient has got still some scratchiness in the throat and some minimal discomfort but much better tolerated some clear liquids and full liquid No nausea no vomiting Could not do barium swallow since no radiologist available till Sunday vital signs Vital Sign Date Time Temp Pulse Resp B/P (MAP) Pulse Ox O2 Delivery O2 Flow Rate FiO2 12/27/24 13:00 98.0 65 17 137/70 (92) 96 98.0 12/26/24 18:18 Room Air* 0 21 Total Intake and Output 12/26/24 12/26/24 12/27/24 15:00 23:00 07:00 Intake Total 480 ml Balance 480 ml medications Current Medications Medications Dose Ordered Sig/Edwar Route Start Time Stop Time Status Last Admin Dose Admin Ceftriaxone Sodium 50 ml @ 100 mls/hr DAILY@09 IV 12/27/24 09:00 12/27/24 09:26 100 MLS/HR Hydralazine HCl 10 mg Q6HP PRN IV 12/26/24 02:15 Sodium Chloride 1,000 ml @ 60 mls/hr [id number] IV 12/26/24 02:15 12/27/24 05:53 60 MLS/HR Acetaminophen/ Hydrocodone Bitart 1 tab Q4HP PRN PO 12/26/24 02:15 Ondansetron HCl 4 mg Q4HP PRN IV 12/26/24 02:15 Docusate Sodium 100 mg BIDPRN PRN PO 12/26/24 02:15 Acetaminophen 650 mg Q6HP PRN PO 12/26/24 02:15 Nitroglycerin 0.4 mg Q5MINP PRN SL 12/26/24 03:00 Morphine Sulfate 2 mg Q30M PRN IV 12/26/24 03:00 objective Abdomen is soft nontender no masses Lungs are clear laboratory and microbiology Laboratory Tests 12/27/24 06:02 Test 12/27/24 06:02 Range/Units Serum Glucose 100 74-106 mg/dL Assessment/Plan 84-year-old female with a history of throat pain as well as chest discomfort after eating dinner feels like food is stuck in the midsternal area. CT scan failed to reveal any masses tolerated some clear liquids well patient is still feeling some discomfort in the epigastrium as well as chest Clinical impression is Possible esophagitis from some food impaction which is probably dislodged now CT scan done without oral contrast is normal Has got some mild collagenous as well as discomfort still but much better tolerated liquids well Patient was advised some barium swallow but could not get it done Recommend EGD evaluation tomorrow and further workup including dilatation if necessary because of the symptoms and persistent because of the food impaction Procedure risks benefits alternatives explained and agreeable for the same Thank you Dr. Cuevas Plan discussed with: Patient ELOINA CUEVAS MD Dec 27, 2024 15:49
[2024-12-28] VITALS (9 sets, daily range): BP systolic 136–151; BP diastolic 57–81; PULSE 57–75; RESP 12–18; TEMP 97.9–98.2; O2SAT 95–99
[2024-12-28 04:42] LABS: Chloride 105 mmol/L (98-107); Hematocrit 35.8 % (36.0-46.0); Hemoglobin 12.2 g/dL (12.2-16.2); Mean Corpuscular Hemoglobin 30.9 pg (28.0-32.0); Mean Corpuscular Volume 90.6 fL (80.0-100.0); Nucleated Red Blood Cells % 0.1 %; Potassium 4.4 mmol/L (3.5-5.1); Sodium 138 mmol/L (136-145)
[2024-12-28 04:43] LABS: Anion Gap 8 (5-15); Calcium 8.9 mg/dL (8.7-10.4); Carbon Dioxide 25 mmol/L (20-31)
[2024-12-28 04:48] LABS: BUN/Creatinine Ratio 13.5 (10.0-20.0); Blood Urea Nitrogen 10 mg/dL (9-23)
[2024-12-28 04:52] LABS: Glucose 124 mg/dL (74-106)
[2024-12-28] MEDS: ACETAMINOPHEN 325 MG TAB PO PRN (13:10)
[2024-12-28] MEDS ORDERED: NALOXONE HCL 0.4 MG/ML VIAL ONE (21:11)
[2024-12-28] MEDS ORDERED: FLUMAZENIL 0.1 MG/ML INJ 10ML MDV IV ONE (21:11)
[2024-12-28] MEDS ORDERED: SODIUM CHLORIDE LOCK 10 ML ONE (21:13)
[2024-12-28] MEDS: LIDOCAINE VISCOUS 2% 15ML UD ONE (21:45)
[2024-12-28] MEDS: MIDAZOLAM HCL 5 MG/ML-1ML VIAL ONE (21:54)
[2024-12-28] MEDS: fentaNYL CITRATE 100 MCG/2 ML VL ONE (21:54)
--- NOTE | 2024-12-28 22:12 | DVHPN2 ---
Subjective The patient is seen and examined at bedside. Complain of abdominal pain. Complain of having problem of swallowing. The patient tolerated clear liquid diet with some pain still. Reviewed: Care Plan, H&P, Labs, Medications, Previous Orders, Radiology Changes from previous H/P or p: No Changes Eyes: No Pain, No Vision change, No Conjunctivae inflammation, No Eyelid inflammation, No Other, No Redness ENT: No Ear pain, No Ear discharge, No Nose pain, No Nose discharge, No Nose congestion, No Mouth pain, No Mouth swelling, No Throat pain, No Throat swelling, No Other Cardiovascular: No Chest Pain, No Palpitations, No Orthopnea, No Paroxysmal Noc. Dyspnea, No Edema, No Lt Headedness; Other (Chest pressure) Respiratory: No Cough, No Dry, No Shortness of breath, No SOB with excertion, No Wheezing, No Hemoptysis, No Pleuritic Pain, No Sputum, No Other Gastrointestinal: Nausea; No Vomiting; Abdominal Pain; No Diarrhea, No Constipation, No Melena, No Hematochezia, No Other Genitourinary: No Dysuria, No Frequency, No Incontinence, No Hematuria, No Retention, No Other Musculoskeletal: No other, No neck pain, No shoulder pain, No arm pain, No back pain, No hand pain, No leg pain, No foot pain Skin: No Rash, No Lesions, No Jaundice, No Bruising, No Other Objective Vitals Vital Signs Date Time Temp Pulse Resp B/P (MAP) Pulse Ox O2 Delivery O2 Flow Rate FiO2 12/28/24 17:00 97.9 58 18 138/75 (96) 95 97.9 12/26/24 18:18 Room Air* 0 21 Intake/Output Intake and Output 12/28/24 06:59 Intake Total 1475 ml Balance 1475 ml Intake Oral 1425 ml IV Total 50 ml # Voids 6 # Bowel Movements 1 General Appearance: Alert, Cooperative, mild distress HEENT: Atraumatic, PERRLA, EOMI, Mucous membr. moist/pink Neck: Supple Lungs: Clear to auscultation, Normal air movement Cardiovascular: Regular rate, Normal S1, Normal S2, No murmurs, Gallops, Rubs Abdomen: Normal bowel sounds, Soft, No tenderness Extremities: Normal pulses Neuro: Cranial nerves 3-12 NL Psych/Mental Status: Mental status NL Medications Current Medications Medications Dose Ordered Sig/Edwar Route Start Time Stop Time Status Last Admin Dose Admin Ceftriaxone Sodium 50 ml @ 100 mls/hr DAILY@09 IV 12/27/24 09:00 12/28/24 10:09 100 MLS/HR Hydralazine HCl 10 mg Q6HP PRN IV 12/26/24 02:15 Sodium Chloride 1,000 ml @ 60 mls/hr [id number] IV 12/26/24 02:15 12/28/24 00:07 60 MLS/HR Acetaminophen/ Hydrocodone Bitart 1 tab Q4HP PRN PO 12/26/24 02:15 Ondansetron HCl 4 mg Q4HP PRN IV 12/26/24 02:15 Docusate Sodium 100 mg BIDPRN PRN PO 12/26/24 02:15 Acetaminophen 650 mg Q6HP PRN PO 12/26/24 02:15 12/28/24 13:10 650 MG Nitroglycerin 0.4 mg Q5MINP PRN SL 12/26/24 03:00 Morphine Sulfate 2 mg Q30M PRN IV 12/26/24 03:00 Laboratory Results Laboratory Tests 12/28/24 04:10 Chemistry Test 12/28/24 04:10 Calcium Level 8.9 mg/dL (8.7-10.4) Urinalysis Test 12/25/24 23:09 Urine Color Light-yellow (Yellow) Urine Clarity Turbid (Clear) H Urine pH 6.5 (5.0-9.0) Urine Specific [place] 1.009 (1.001-1.035) Urine Protein Negative (Negative) Urine Ketones Negative (Negative) Urine Blood Negative /uL (Negative) Urine Nitrite Negative (Negative) Urine Bilirubin Negative (Negative) Urine Urobilinogen Normal mg/dL (Negative) Urine Leukocyte Esterase 3+ /uL (Negative) Urine RBC 2 /hpf (0 - 4) Urine Microscopic WBC 34 /HPF (0-5) H Urine Squamous Epithelial Cells Few /hpf (<5) Urine Amorphous Crystals Few /hpf (None Seen) Urine Bacteria Few /hpf (None Seen) H Urine Hyaline Casts Few /lpf (0 - 2) Urine Mucus Few (None Seen) Urine Glucose Normal mg/dL (Normal) Microbiology Microbiology Date/Time Source Procedure Growth Status 12/25/24 23:09 Voided Urine Urine Culture - Final Complete Labs and/or images reviewed: Labs reviewed by me Assessment/Plan Assessment/Plan Abdominal pain Urinary tract infection Esophageal obstruction due to food impaction Plan Continuing current management. Continuing with IV antibiotic. Appreciate GI specialist input. He recommend a barium swallow with oral contrast barium and see the esophagus and depending upon the specific symptoms persist he will recommend EGD evaluation. Patient also otherwise needs an EGD evaluation as an outpatient sometimes otherwise The patient is supposed to have barium swallowing today but she can not tolerate it. Per GI specialist, Dr. Cuevas: The patient will have EGD in a.m. and possible dilation to prevent the food impaction. This medical document was created using an electronic medical record system with [employer] [facility] direct computerized dictation system. Although this document has been carefully reviewed, there may still be some phonetic and typographical errors. These areas are purely typographical due to imperfections of the software programs, and do not reflect any compromise in the patient's medical care. Plan discussed with: Patient My Orders Orders - MARYLU WEISS MD Procedure Category Date Status Time Complete Blood Count LAB 12/29/24 Verified 05:00 Complete Blood Count LAB 12/30/24 Verified 05:00 Complete Blood Count LAB 12/31/24 Verified 05:00 Complete Blood Count LAB 01/01/25 Verified 05:00 Basic Metabolic Panel LAB 12/29/24 Verified 05:00 Basic Metabolic Panel LAB 12/30/24 Verified 05:00 Basic Metabolic Panel LAB 12/31/24 Verified 05:00 Basic Metabolic Panel LAB 01/01/25 Verified 05:00 Date of Service: Dec 28, 2024 Billing Provider: MARYLU WEISS MD Common Visit Codes: [id number] INP/OBS CARE(HIGH) MARYLU WEISS MD Dec 28, 2024 22:12
--- NOTE | 2024-12-28 22:20 | DVHOP2 ---
Operative Report DATE OF PROCEDURE: 12/28/24 INDICATIONS FOR THE PROCEDURE: 12/28/24 PROCEDURE PERFORMED: 1. Esophagogastroduodenoscopy and biopsy POSTOPERATIVE DIAGNOSIS: 1cm Hiatal hernia Esophageal stricture dilated with balloon dilators Mild esophagitis Antral gastritis biopsies taken No food impaction seen INFORMED CONSENT: The risks and benefits and alternatives were explained to the patient and informed consent was obtained. PROCEDURE IN DETAIL: The patient was kept NPO after midnight. In the endoscopy room, she was given IV fentanyl and Versed, and titrated slowly to get her sedated. Olympus gastroscope was passed through the oropharynx into the stomach and the duodenum, and the findings were as follows. Oropharynx normal Esophagus: 1cm hiatal hernia Esophagitis mild LA classification B Esophageal stricture 1 cm long in the distal esophagus dilated balloon dilators 15-18 mm balloon used Stomach: Fundus: Normal Body and antrum Mild erythematous streaks suggestive of Gastritis in the antrum biopsies taken to ensure there was no H pylori or other pathology Pylorus normal Duodenum Normal Endoscopic impression 1cm Hiatal hernia Esophageal stricture dilated with balloon dilators Mild esophagitis Antral gastritis biopsies taken No food impaction seen Suggestions Await the biopsy result PPIs Soft diet for 2 days and then slowly increase the diet Patient tolerating the diet and no other symptoms could be discharged on PPIs and Carafate If symptoms of dysphagia persist may need further evaluation and treatment as necessary Thank you ELOINA Roque MD Dec 28, 2024 22:20
[2024-12-29 01:00] VITALS: BP 164/86; PULSE 53; RESP 16; TEMP 98; O2SAT 99
[2024-12-29 05:00] VITALS: BP 157/72; PULSE 62; RESP 16; TEMP 97.9; O2SAT 98
[2024-12-29 08:00] VITALS: PULSE 57
[2024-12-29 08:02] LABS: Hematocrit 36.6 % (36.0-46.0); Hemoglobin 12.5 g/dL (12.2-16.2); Mean Corpuscular Hemoglobin 30.8 pg (28.0-32.0); Mean Corpuscular Volume 89.9 fL (80.0-100.0); Nucleated Red Blood Cells % 0.1 %
[2024-12-29 08:17] LABS: Chloride 103 mmol/L (98-107); Potassium 3.8 mmol/L (3.5-5.1); Sodium 140 mmol/L (136-145)
[2024-12-29 08:18] LABS: Anion Gap 11 (5-15); Calcium 8.9 mg/dL (8.7-10.4); Carbon Dioxide 26 mmol/L (20-31)
[2024-12-29 08:23] LABS: BUN/Creatinine Ratio 10.6 (10.0-20.0); Glucose 93 mg/dL (74-106)
[2024-12-29 08:28] LABS: Blood Urea Nitrogen 7 mg/dL (9-23)
[2024-12-29 09:00] VITALS: BP 141/58; PULSE 56; RESP 16; TEMP 97.6; O2SAT 94
[2024-12-29] MEDS ORDERED: GASTROGRAFIN 120 ML SOL ONE (09:11)
--- NOTE | 2024-12-29 09:54 | DVH ---
XY ESOPHAGUS GASTROGRAFIN SWALLOW, HISTORY: DYSPHAGIA; R/O FOREIGN BODY COMPARISON: None PROCEDURE: A medical affairs leader radiograph was obtained prior to the procedure. Gastrograffin administered orally , and radiographs were obtained under intermittent fluoroscopic observation. Total fluoroscopic time was 0.1 minutes. FINDINGS: The esophagus was normal in caliber with no stricture, filling defect or wall irregularity demonstrat ed. Normal esophageal peristalsis was observed. Small hiatal hernia is present. IMPRESSION: Unremarkable esophagram without filling defect visualized to suggest for foreign body.
[2024-12-29] MEDS ORDERED: CEPH250C PO (11:00)
--- NOTE | 2024-12-29 11:00 | DVHDS2 ---
Discharge Summary Date of Admission Dec 26, 2024 at 02:53 Date of Discharge: Dec 29, 2024 Admitting Diagnosis Abdominal pain Urinary tract infection Esophageal obstruction due to food impaction Labs/Diagnostic Data: Laboratory Results Test 12/29/24 06:22 12/27/24 06:02 12/25/24 23:09 12/25/24 20:45 White Blood Count 4.1 10^3/uL (4.4-10.8) Red Blood Count 4.07 10^6/uL (4.0-5.20) Hemoglobin 12.5 g/dL (12.2-16.2) Hematocrit 36.6 % (36.0-46.0) Mean Corpuscular Volume 89.9 fL (80.0-100.0) Mean Corpuscular Hemoglobin 30.8 pg (28.0-32.0) Mean Corpuscular Hemoglobin Concent 34.3 g/dL (32.0-36.0) Red Cell Distribution Width 14.6 % (11.8-14.3) Platelet Count 138 10^3/uL (140-450) Mean Platelet Volume 9.6 fL (6.9-10.8) Neutrophils (%) (Auto) 59.8 % (37.0-80.0) Lymphocytes (%) (Auto) 26.6 % (10.0-50.0) Monocytes (%) (Auto) 8.1 % (0.0-12.0) Eosinophils (%) (Auto) 4.9 % (0.0-7.0) Basophils (%) (Auto) 0.6 % (0.0-2.0) Neutrophils # (Auto) 2.5 10 ^3/uL (1.6-8.6) Lymphocytes # (Auto) 1.1 10 ^3/uL (0.4-5.4) Monocytes # (Auto) 0.3 10 ^3/uL (0-1.3) Eosinophils # (Auto) 0.2 10 ^3/uL (0-0.8) Basophils # (Auto) 0 10 ^3/uL (0-0.2) Nucleated Red Blood Cells 0.1 % Sodium Level 140 mmol/L (136-145) Potassium Level 3.8 mmol/L (3.5-5.1) Chloride Level 103 mmol/L (98-107) Carbon Dioxide Level 26 mmol/L (20-31) Anion Gap 11 (5-15) Blood Urea Nitrogen 7 mg/dL (9-23) Creatinine 0.66 mg/dL (0.550-1.02) Glomerular Filtration Rate Calc 88 mL/min (>90) BUN/Creatinine Ratio 10.6 (10.0-20.0) Serum Glucose 93 mg/dL (74-106) Calcium Level 8.9 mg/dL (8.7-10.4) Total Bilirubin 0.4 mg/dL (0.2-1.0) Aspartate Amino Transferase (AST) 20 U/L (13-40) Alanine Aminotransferase (ALT) 13 U/L (7-40) Alkaline Phosphatase 74 U/L (46-116) Total Protein 6.6 g/dL (5.7-8.2) Albumin 3.9 g/dL (3.2-4.8) Urine Color Light-yellow (Yellow) Urine Clarity Turbid (Clear) Urine pH 6.5 (5.0-9.0) Urine Specific [place] 1.009 (1.001-1.035) Urine Protein Negative (Negative) Urine Ketones Negative (Negative) Urine Blood Negative /uL (Negative) Urine Nitrite Negative (Negative) Urine Bilirubin Negative (Negative) Urine Urobilinogen Normal mg/dL (Negative) Urine Leukocyte Esterase 3+ /uL (Negative) Urine RBC 2 /hpf (0 - 4) Urine Microscopic WBC 34 /HPF (0-5) Urine Squamous Epithelial Cells Few /hpf (<5) Urine Amorphous Crystals Few /hpf (None Seen) Urine Bacteria Few /hpf (None Seen) Urine Hyaline Casts Few /lpf (0 - 2) Urine Mucus Few (None Seen) Urine Glucose Normal mg/dL (Normal) POC Glucose 116 mg/dl (70-106) Test 12/25/24 20:38 Lipase 34 U/L (12-53) Other Laboratory Tests 12/29/24 06:22 Brief Hx & Hospital Course: This is an 84 years old female with past medical history hypertension come to emergency department because severe abdominal pain. The patient stated that she having dinner and then she started having intermittent midsternal chest pain and discomfort in severe epigastric pain with spasm. She feels like the food was stuck in her midsternal chest area. She fell nauseated and unable to swallow. She can not keep anything down and having drive he. The patient came to emergency department for further evaluation. The patient had CT scan patient abdomen and pelvis done showed:Chest/abdomen/pelvis CT showed no acute abdominal or pelvic findings. Urinalysis positive for urinary tract infection. Patient was admitted. The patient was put on IV antibiotic with Rocephin 1 g IV q.day. GI specialist was consulted. Subsequently the patient had EGD done. It showed 1cm Hiatal hernia,Esophageal stricture dilated with balloon dilators,Mild esophagitis, Antral gastritis biopsies taken,No food impaction seen. Dr. Cuevas recommend the patient to have soft and liquid diet for two weeks prior to eating normal food again. The patient tolerated full liquid diet in the hospital so I am going to discharge her home. Advised her to follow up with primary care physician 1-2 weeks, follow up with Dr. Cuevas, GI specialist per schedule. Activity as tolerated. Diet per home diet. Recommend soup, liquid diet, very soft diet such as mashed potato only. The patient needs to eat slow Physical exam: HEENT: Normocephalic atraumatic pupils equal react to light and accommodation. Extraocular muscles intact, conjunctiva pink, oropharynx moist, no thrush, no exudate. Lymphatic: No lymphadenopathy Cardiovascular exam: S1, S2 was heard. No murmurs, rubs, gallops Lung: Clear on auscultation bilaterally, no wheeze, rale, rhonchi. GI: Abdominal soft, nondistended, nontenderness, positive bowel sounds. Extremity: No crepitus, cyanosis, edema. Pedal pulses present bilateral. Full range of motion. Skin: Normal turgor, no rash. Psych: Alert, oriented x3. Neurology: No focal deficits, cranial nerve II to XII grossly intact. This medical document was created using an electronic medical record system with [employer] direct computerized dictation system. Although this document has been carefully reviewed, there may still be some phonetic and typographical errors. These areas are purely typographical due to imperfections of the software programs, and do not reflect any compromise in the patient's medical care. Condition at Discharge: Stable Final Diagnosis/Problems List Abdominal pain Urinary tract infection Esophageal obstruction due to food impaction Discharge Disposition: Home Discharge Instruct/Medications Diet: Regular Diet comment: Soft diet x2 weeks Activity: No Restrictions, As Tolerated Follow Up/Referral: PCP 1-2 weeks Medications: See med list Scheduled Atorvastatin Calcium (Atorvastatin Calcium), 1 TAB PO DAILY, (Reported) Cephalexin (Keflex Capsule), 2 CAP PO QID Ergocalciferol (Vitamin D (Ergocalciferol), 50,000 UNIT PO EVERY 7 DAYS, (Reported) Lisinopril (Lisinopril), 5 MG PO DAILY, (Reported) Omeprazole (Gnp Omeprazole), 1 TAB PO DAILY, (Reported) Discharge Statement: "Patient was advised to return to the ER or call 911 if any headaches, dizziness, shortness of breath, chest pain, abdominal pain, bleeding, fevers, or worsening of medical condition. Patient was counseled about treatment plan, medications, possible side effects, patientverbalized understanding. All questions were answered to the best of my ability. This discharge took greater then 30 minutes in planning, reviewing documentation, counseling the patient, and discussing with other team members." ASSESSMENT ASSESSMENT Assessment abdominal pain Date of Service: Dec 29, 2024 Billing Provider: MARYLU WEISS MD Common Visit Codes: 00050-GZR/OBS DISCH DAY >30min MARYLU WEISS MD Dec 29, 2024 11:00
[2024-12-29 13:00] VITALS: BP 145/92; PULSE 79; RESP 16; TEMP 97.4; O2SAT 96
== END 2024-12-29 15:51 | disposition home or self-care (01) | DRG 243 ==
LOC: ER 20:11 → OVERFLOW 12-26 02:53 → TELE-EAST 12-26 16:23
PROVIDERS: ADMIT Internal Medicine; ATTEND Internal Medicine
PROC: 0DB78ZX Excision of Stomach, Pylorus, Via Natural or Artificial Opening Endoscopic, Diagnostic (ICD-10-PCS; 2024-12-28)
PROC: 0D758ZZ Dilation of Esophagus, Via Natural or Artificial Opening Endoscopic (ICD-10-PCS; principal; 2024-12-28 21:48)
DX: K20.90 Esophagitis, unspecified without bleeding (principal); K22.2 Esophageal obstruction; K29.70 Gastritis, unspecified, without bleeding; I10 Essential (primary) hypertension; N13.9 Obstructive and reflux uropathy, unspecified; N39.0 Urinary tract infection, site not specified; K44.9 Diaphragmatic hernia without obstruction or gangrene
CPT/HCPCS: 36415; 43239; 43249; 71260; 74177; 74220; 80048; 80053; 81001; 82962; 83690; 85025; 87086; 96365; 99291; G0378; J2250